=== PATIENT | male | born 1935 | race Caucasian/White ===

== ENCOUNTER → 2017-02-11 | Outpatient (CLI) | payer MEDICARE | END | disposition home or self-care (01) | LOC: PETCFH 09:18 | PROVIDERS: ATTEND Internal Medicine Critical Care Medicine | DX: R91.8 Other nonspecific abnormal finding of lung field (principal); R59.0 Localized enlarged lymph nodes; C61 Malignant neoplasm of prostate; E27.9 Disorder of adrenal gland, unspecified | CPT/HCPCS: 78815; A9552 ==

== ENCOUNTER 2017-02-25 05:11 | Day surgery (SDC) | payer MEDICARE ==
[2017-02-23 09:07] VITALS: BP 121/72
[~2017-02-25] VITALS: Ht 182.9 cm; Wt 73.0 kg
[~2017-02-25 05:11] MED LIST: ANTI1CAP PO; CHOL20002 PO; MULT-717 PO; OMEP20TA62 PO
[2017-02-25] MEDS ORDERED: LACTATED RINGERS 1,000 ML IV SCH (06:13)
[2017-02-25] MEDS ORDERED: LIDOCAINE 1%, 2ML SQ PRN (06:30)
[2017-02-25] MEDS ORDERED: FENTANYL PF 250 MCG/5ML ONE (07:31)
[2017-02-25] MEDS ORDERED: MIDAZOLAM 1 MG/ML, 2ML ONE (07:31)
[2017-02-25] MEDS ORDERED: SUCCINYLCHOLINE 20 MG/ML, 10ML ONE (07:38)
[2017-02-25] MEDS ORDERED: EPHEDRINE 50 MG/ML, 1ML ONE (07:38)
[2017-02-25] MEDS ORDERED: ROCURONIUM 10 MG/ML ONE (07:38)
[2017-02-25] MEDS ORDERED: DEXAMETHASONE 4 MG/ML, 1ML ONE (07:38)
[2017-02-25] MEDS ORDERED: PROPOFOL 10 MG/ML, 20ML ONE (07:38)
[2017-02-25] MEDS ORDERED: ONDANSETRON 2MG/ML, 2ML ONE (07:38)
[2017-02-25] MEDS ORDERED: PROMETHAZINE 25 MG/ML, 1ML IV PRN (08:30)
[2017-02-25] MEDS ORDERED: ACETAMINOPHEN 325 MG TABLET PO PRN (08:30)
[2017-02-25] MEDS ORDERED: OXYcodone 5 MG/5 ML ORAL.SOL UDC PO PRN (08:30)
[2017-02-25] MEDS ORDERED: FENTANYL PF 100 MCG/2ML IV PRN (08:30)
== END 2017-02-25 12:30 ==
LOC: OUT 05:11
PROVIDERS: ATTEND Internal Medicine Critical Care Medicine
DX: R91.8 Other nonspecific abnormal finding of lung field (principal); J44.9 Chronic obstructive pulmonary disease, unspecified; Z87.891 Personal history of nicotine dependence; Z72.89 Other problems related to lifestyle; Z86.73 Personal history of transient ischemic attack (TIA), and cerebral infarction without residual deficits
CPT/HCPCS: 31629; 31652; 88172; 88173; 88184; 88185; 88305; 93005; J0330; J1100; J2250; J2405; J2704; J3010; J3490; J7120

== ENCOUNTER → 2018-01-06 | Outpatient (CLI) | payer MEDICARE | LOC: STAR 09:56 | PROVIDERS: ATTEND Internal Medicine Critical Care Medicine | DX: R94.31 Abnormal electrocardiogram [ECG] [EKG] (principal); R91.8 Other nonspecific abnormal finding of lung field | CPT/HCPCS: 93005 ==